=== PATIENT | female | born 2000 | race Caucasian/White ===

== ENCOUNTER 2024-08-23 09:04 | Emergency (ER) | payer MEDICAID, SELFPAY ==
[2024-08-23 09:19] VITALS: BP 128/77; PULSE 100; TEMP 36.7; O2SAT 97; BMI 19.5
--- NOTE | 2024-08-23 09:53 | ED_ITS ---
HPI HPI - General Adult General Chief complaint: Abdominal Pain Stated complaint: ABDOMINAL PAIN Time Seen by Provider: 08/23/24 09:08 Source: patient Mode of arrival: walk-in Limitations: no limitations History of Present Illness HPI narrative: This 23-year-old female states that she had what by her description sounds of a missed and 1 week ago underwent D&C at [facility]. She was discharged the same day with a prescription for Methergine and doxycycline. She has not been able to fill her prescription for Methergine. She has been experiencing persistent bleeding with the passage of blood clots with increasing lower abdominal pain. She went to [place] emergency department yesterday where she was treated. She comes in because of persistent pain and bleeding. She states she was prescribed some medication but has not gotten it filled because of lack of funds. Related Data Home Medications ?Medication ?Instructions ?Recorded ?Confirmed doxycycline hyclate 100 mg capsule mg 08/23/24 Allergies Allergy/AdvReac Type Severity Reaction Status Date / Time No Known Drug Allergies Allergy Verified 08/23/24 09:19 Opioid HPI Opioid Management Most Recent Opioid Data: Last Pain Scale 10 Today, 10:06 Last JUN Pain Assessment Today, 10:06 Review of Systems ROS Status of ROS 10 or more systems reviewed and unremark able except as noted in history and below PFSH PFS Social History Little interest or pleasure in doing things: not at all Feeling down, depressed, or hopeless: not at all Exam Narrative Exam Narrative: Patient does not appear acutely ill. Vital signs are stable. HEENT exam is normal to inspection. Neck supple. Lung sounds are clear to auscultation bilaterally with good air entry. Heart has regular rate rhythm. Abdomen is flat and soft with diffuse tenderness across the lower abdomen but without peritoneal signs. There is no organomegaly. She moves all extremities actively. Constitutional Vital Signs, click to edit/add: Last Vital Signs Temp 98.1 F 08/23/24 09:19 Pulse 65 08/23/24 12:29 Resp 16 08/23/24 12:29 BP 112/65 08/23/24 12:29 Pulse Ox 97 08/23/24 12:29 O2 Del Method Room Air 08/23/24 12:29 Course Vital Signs Vital signs: Vital Signs Temperature 98.1 F 08/23/24 09:19 Pulse Rate 100 H 08/23/24 09:19 Respiratory Rate 18 08/23/24 09:19 Blood Pressure 128/77 08/23/24 09:19 Pulse Oximetry 97 08/23/24 09:19 Oxygen Delivery Method Room Air 08/23/24 09:19 Temperature 98.1 F 08/23/24 09:19 Pulse Rate 65 08/23/24 12:29 Respiratory Rate 16 08/23/24 12:29 Blood Pressure 112/65 08/23/24 12:29 Pulse Oximetry 97 08/23/24 12:29 Oxygen Delivery Method Room Air 08/23/24 12:29 Medical Decision Making MDM Narrative Medical decision making narrative: Patient presents with abdominal pain and vaginal bleeding following a D&C for missed 6 days ago. She was treated with IV Zofran and morphine in the ED and seems quite comfortable. Her vital signs have been stable. I accessed her ED records from [facility] from her visit yesterday. Her hCG yesterday was 2859. She had a hemoglobin of 9.9. Her pelvic ultrasound reported thickening of the endometrium suggesting retained products of conception. The ED physician contacted her lumber grader who recommended starting her back on Methergine. The did not have Methergine tablets to dispense advised her to get her prescription filled. Patient is administered 1 Methergine 0.2 mg tablet orally in the ED and discharged home with 5 more tablets to go and advised to take it 3 times a day. She is to contact her lumber grader for early follow-up and may return anytime for worsening symptoms. Lab Data Labs: Lab Results 08/23/24 Range/Units 09:52 WBC 8.1 (4.0-11.0) 10^3/uL RBC 3.10 L (4.20-5.40) 10^6/uL Hgb 10.4 L (12.0-16.0) g/dL Hct 30.7 L (36.0-48.0) % MCV 99.0 (81.0-99.0) fL MCH 33.5 (26.7-34.0) pg MCHC 33.9 (29.9-35.2) g/dL RDW 12.0 (11.0-15.0) % Plt Count 210 (150-450) 10^3/uL MPV 9.2 L (9.5-13.5) fL Neut % (Auto) 76.9 H (43.0-75.0) % Lymph % (Auto) 13.4 L (20.5-60.0) % [place] % (Auto) 8.1 (1.7-12.0) % Eos % (Auto) 1.0 (0.9-7.0) % Baso % (Auto) 0.2 (0.2-2.0) % Neut # (Auto) 6.2 (1.4-6.5) 10^3/uL Lymph # (Auto) 1.1 L (1.2-3.8) 10^3/uL [place] # (Auto) 0.7 (0.3-0.8) 10^3/uL Eos # (Auto) 0.1 (0.0-0.7) 10^3/uL Baso # (Auto) 0.0 (0.0-0.1) 10^3/uL Abs Immat Gran (auto) 0.03 (0.00-0.03) 10^3/uL Imm/Tot Granulo (auto) 0.4 (0.0-0.5) % Sodium 140 (136-145) mmol/L Potassium 3.8 (3.5-5.1) mmol/L Chloride 103 (98-107) mmol/L Carbon Dioxide 26.1 (21.0-32.0) mmol/L Anion Gap 14.7 BUN 9.0 (7.0-18.0) mg/dL Creatinine 0.47 L (0.55-1.02) mg/dL Est GFR ( Amer) >60 (>=60 mL/min/1.73m^2) Est GFR (Non-Af Amer) >60 (>=60 mL/min/1.73m^2) BUN/Creatinine Ratio 19.1 Glucose 123 H (74-106) mg/dL Calcium 8.7 (8.5-10.1) mg/dL HCG, Quant 2321 mIU/mL Discharge Plan Discharge Chief Complaint: Abdominal Pain Clinical Impression: Post-operative pain Patient Disposition: Home, Self-Care Time of Disposition Decision: 12:01 Mode of Transportation: Private Vehicle Prescriptions / Home Meds: No Action doxycycline hyclate 100 mg capsule Print Language: Telugu Instructions: Pain Management After Surgery (DC) Additional Instructions: Take [id number] ibuprofen and a dose of 400 mg every 6 hours for pain. Take with food. We are dispensing methylergonovine tablets. 5 tablets are provided. Take 1 tablet 3 times a day until gone. Follow-up with your lumber grader in the next few days. Return for worsening symptoms. Referrals: KELSEA BROWN [Primary Care Provider, Family Practice] - 1 week Jessica Gonzalez MD [Physician] - As soon as possible Discharge Date/Time: 08/23/24 12:32
[2024-08-23] MEDS: ONDANSETRON PF 4 MG/2 ML VIAL IV (10:06)
[2024-08-23] MEDS: MORPHINE SULFATE 2 MG/ML SYRINGE IV (10:06)
[2024-08-23] MEDS: 0.9 % SODIUM CHLORIDE 1,000 ML 1000 ML IV (10:07)
[2024-08-23 10:14] VITALS: BP 107/69; PULSE 91; O2SAT 99
[2024-08-23 10:23] LABS: Basophils Percent Auto 0.2 % (0.2-2.0); Eosinophils Absolute Auto 0.1 10^3/uL (0.0-0.7); Hematocrit 30.7 % (36.0-48.0); Hemoglobin 10.4 g/dL (12.0-16.0); Immature Granulocytes Abs Auto 0.03 10^3/uL (0.00-0.03); Immature Granulocytes Pct Auto 0.4 % (0.0-0.5); Lymphocytes Absolute Auto 1.1 10^3/uL (1.2-3.8); Lymphocytes Percent Auto 13.4 % (20.5-60.0); Mean Corpuscular HGB Conc 33.9 g/dL (29.9-35.2); Mean Corpuscular Hemoglobin 33.5 pg (26.7-34.0); Mean Platelet Volume 9.2 fL (9.5-13.5); Monocytes Absolute Auto 0.7 10^3/uL (0.3-0.8); Monocytes Percent Auto 8.1 % (1.7-12.0); Neutrophils Absolute Auto 6.2 10^3/uL (1.4-6.5); Neutrophils Percent Auto 76.9 % (43.0-75.0); Platelet Count 210 10^3/uL (150-450); White Blood Count 8.1 10^3/uL (4.0-11.0)
[2024-08-23 11:00] VITALS: BP 114/69; PULSE 65; O2SAT 100
[2024-08-23 11:04] LABS: Anion Gap 14.7; BUN Creatinine Ratio 19.1; Calcium 8.7 mg/dL (8.5-10.1); Carbon Dioxide 26.1 mmol/L (21.0-32.0); Chloride 103 mmol/L (98-107); Estimated GFR (African America >60 (>=60 mL/min/1.73m^2); Estimated GFR (Non-African Ame >60 (>=60 mL/min/1.73m^2); Glucose 123 mg/dL (74-106); Potassium 3.8 mmol/L (3.5-5.1); Sodium 140 mmol/L (136-145)
[2024-08-23 11:06] LABS: HCG Quantitative 2321 mIU/mL
[2024-08-23] MEDS: METHYLERGONOVINE MALEATE 0.2 MG TABLET PO ×2 (12:19→12:20)
[2024-08-23 12:29] VITALS: BP 112/65; PULSE 65; O2SAT 97
== END 2024-08-23 12:32 | disposition home or self-care (01) ==
PROVIDERS: Emergency Provider Emergency Medicine; PCP Family Medicine
DX: G89.18 Other acute postprocedural pain (principal); Z98.890 Other specified postprocedural states
CPT/HCPCS: 36415; 80048; 84702; 85025; 96374; 96375; 99284; J2270; J2405